=== PATIENT | female | born 1935 | race Caucasian/White ===

== ENCOUNTER 2017-10-07 10:42 | Inpatient (IN) | payer OTHER ==
[~2017-10-07] VITALS: Ht 154.9 cm; Wt 126.1 kg
[~2017-10-07 10:42] MED LIST: ACTOS 30 MG TAB30 M1 PO; ASPIRIN EC81 M1 PO; BILBERRY80 MG PO; CINNAMON ALPHA1 EACH PO; DOXYCYCLINE 10100 M1 PO; FIORICET 50-321 EACH PO; FISH OIL; FOLIC ACID; GARLIC; GINKGO BILOBA40 M1; GLUCOTROL5 MG PO; HYDROCODON-ACE1 EACH; KEFLEX500 MG PO; LASIX 20 MG TAB20 MG PO; LISINOPRIL20 MG PO; MECLIZINE HCL12.5 MG PO; OCCUVITE; PHENERGAN 25 MG25 M1 PO; TRICOR48 MG PO; VERAPAMIL E.R240 M1 PO; VITAMIN D; VITAMINC500 PO; ZETIA10 MG PO
[2017-10-07 10:51] VITALS: BP 182/73
[2017-10-07] MEDS ORDERED: CO Q-10100 MG PO (11:45)
[2017-10-07] MEDS ORDERED: FIBER625 MG PO (11:45)
[2017-10-07] MEDS ORDERED: VITAMIN B122500 MC1 PO (11:46)
[2017-10-07] MEDS ORDERED: GLUCOSAMINE HC500 MG PO (11:46)
[2017-10-07 11:50] LABS: ABSOLUTE EOSINOPHILS 0.1 thou/uL (0.0-0.7); ABSOLUTE LYMPHOCYTES 0.7 thou/uL (0.8-5.3); ABSOLUTE NEUTROPHILS 4.6 thou/uL (1.6-8.1); BASOPHILS 0.2 %; EOSINOPHILS 1.2 %; HEMATOCRIT 36.8 % (37.0-47.0); HEMOGLOBIN 11.9 gm/dL (12.0-15.0); LYMPHOCYTES 10.5 %; MCH 30.8 pg (26.0-34.0); MCHC 32.3 g/dL (28.0-37.0); MCV 95.3 fL (80.0-100.0); MONOCYTES 15.3 %; MPV 8.1 fl. (7.2-11.1); NUCLEATED RBCS 0 /100WBC; PLATELET COUNT* 170 thou/uL (150-400); POLYS 72.8 %; RBC 3.86 mil/uL (4.20-5.00); RDW-CV 15.2 % (10.5-14.5); WBC 6.3 thou/uL (4.0-11.0)
[2017-10-07 12:06] LABS: BE 6.2 mmol/L (-2 to +3); HCO3 32.1 mmol/L (22.0-26.0)
[2017-10-07 12:08] LABS: PCO2 51.8 mmHg (35.0-45.0)
[2017-10-07 12:49] LABS: APTT 30.9 Seconds (25.0-31.3); INR 1.2; PROTIME 11.4 Seconds (9.20-11.50)
[2017-10-07 12:58] LABS: ALBUMIN 3.7 g/dL (3.4-5.0); ALKALINE PHOSPHATASE 28 U/L (46-116); ANION GAP 5 mmol/L (7-16); BUN 33 mg/dL (7-18); CALCIUM 9.4 mg/dL (8.5-10.1); CHLORIDE 105 mmol/L (98-107); CO2 33 mmol/L (21-32); GLUCOSE 91 mg/dL (70-99); NT-PRO BRAIN NAT PEPTIDE 682 pg/mL (<300); POTASSIUM 3.8 mmol/L (3.5-5.1); SGOT 21 U/L (15-37); SGPT 17 U/L (30-65); SODIUM 143 mmol/L (136-145); TOTAL BILIRUBIN 0.7 mg/dL (<0.1-1.0); TOTAL PROTEIN 6.7 g/dL (6.4-8.2); TROPONIN-I LEVEL <0.06 ng/mL (<0.06)
[2017-10-07] MEDS ORDERED: VERAPAMIL E.R240 M1 PO (15:06)
[2017-10-07] MEDS ORDERED: VICODIN ES 7.51 EACH PO (15:07)
[2017-10-07 16:19] VITALS: BP 154/74
--- NOTE | 2017-10-07 17:10 | EKG ---
[place] [address] ELECTROCARDIOGRAM REPORT Name: MANISHAMEENAGILDA GEORGE Room: [address] IN .R.#: [id number] Admission: 10/07/17 Attend Phys: Bertin Rangel MD Discharge: Date of : 37 Report #: [id number] THIS REPORT FOR: //name// [facility] ED Test Date: 2017-10-07 Test Time: 11:27:16 Pat Name: MEENA DYER Department: Room: Gender: F Business Continuity Management Director: Billy ALEMAN : 1935 Requested By: Luann Simmons Order Number: [id number] MD: Elliot Goode Measurements Intervals [place] Rate: 66 P: 51 WI: 140 QRS: -37 QRSD: 130 T: 26 QT: 446 QTc: 468 Interpretive Statements Sinus rhythm Nonspecific IVCD with LAD Compared to ECG 02/06/2015 14:02:06 Intraventricular conduction delay now present Sinus arrhythmia no longer present Electronically Signed On 10-07-2017 17:10:15 CDT by Elliot Goode [email or web address] <ELECTRONICALLY SIGNED> By: Elliot Goode MD, [facility] 10/07/17 1710 1127 [id number] Elliot Goode MD, [facility] /EPI
--- NOTE | 2017-10-07 17:29 | 2DMMODE ---
[place] [address] 2 D/M-MODE ECHOCARDIOGRAM Name: MEENA DYER Room: [address] IN [facility]#: [id number] Admission: 10/07/17 Attend Phys: Bertin Rangel, Discharge: Date of : 37 Date of Service: 10/07/17 1728 Report #: [id number] THIS REPORT FOR: //name// APPROVED REPORT Study performed: 10/07/2017 16:25:02 EXAM: Comprehensive 2D, Doppler, and color-flow Echocardiogram Patient Location: In-Patient Room #: [facility] Status: routine BSA: 2.17 HR: 64 bpm BP: 182/73 mmHg Rhythm: NSR Other Information Study Quality: Good Indications Congestive Heart Failure 2D Dimensions LVEF(%): 65.38 (>50%) IVSd: 19.33 (7-11mm) LVOT Diam: 21.42 (18-24mm) LVDd: 47.25 mm PWd: 12.49 (7-11mm) Ascending Ao: 33.45 (22-36mm) LVDs: 30.31 (25-40mm) Aortic Root: 33.95 mm Rust's LVEF: 65.38 % Volumes Left Atrial Volume (Systole) LA ESV Index: 42.80 mL/m2 Aortic Valve AoV Peak Ryan.: 2.77 m/s AO Peak Gr.: 30.79 mmHg LVOT Max P.52 mmHg AO Mean Gr.: 17.30 mmHg LVOT Mean P.92 mmHg LVOT Max V: 1.46 m/s AO V2 VTI: 61.67 cm LVOT Mean V: 0.90 m/s QUINTIN (VTI): 2.23 cm2 LVOT V1 VTI: 38.19 cm Mitral Valve E/A Ratio: 0.77 [place] [address] 2 D/M-MODE ECHOCARDIOGRAM Name: MEENA DYER Room: [address] IN [facility].#: [id number] Admission: 10/07/17 Attend Phys: Bertin Rangel, Discharge: Date of : 37 Date of Service: 10/07/17 1728 Report #: [id number] MV Decel. Time: 223.77 ms MV E Max Ryan.: 1.03 m/s MV PHT: 64.89 ms MVA (PHT): 3.39 cm2 TDI E/Lateral E': 7.92 E/Medial E': 10.30 Medial E' Ryan.: 0.10 m/s Lateral E' Ryan.: 0.13 m/s Pulmonary Valve PV Peak Ryan.: 1.26 m/s PV Peak Gr.: 6.38 mmHg Tricuspid Valve TR Peak Gr.: 37.50 mmHg RVSP: 42.00 mmHg Left Ventricle The left ventricle is normal size. There is normal LV segmental wall motion. Moderate septal hypertrophy is present. Left ventricular systolic function is normal. The left ventricular ejection fraction is within the normal range. LVEF is 60-65%. Grade I - abnormal relaxation pattern. Right Ventricle The right ventricle is normal size. The right ventricular systolic function is normal. Atria Left atrium is moderately dilated. The right atrium size is normal. Aortic Valve Mild aortic valve sclerosis. No aortic regurgitation is present. Mild aortic stenosis. Mitral Valve The mitral valve is normal in structure. Trace mitral regurgitation. No evidence of mitral valve stenosis. Tricuspid Valve The tricuspid valve is normal in structure. Trace tricuspid regurgitation pa pressure 50 mm Hg Pulmonic Valve The pulmonary valve is normal in structure. [place] [address] 2 D/M-MODE ECHOCARDIOGRAM Name: MEENA DYER Room: [address] IN [facility]#: [id number] Admission: 10/07/17 Attend Phys: Bertin Rangel, Discharge: Date of : 37 Date of Service: 10/07/17 1728 Report #: [id number] Great Vessels The aortic root is normal in size. IVC is normal in size and collapses with >50% inspiration Pericardium There is no pericardial effusion. <Conclusion> LVEF is 60-65%. Left atrium is moderately dilated. Mild aortic stenosis. Trace tricuspid regurgitation pa pressure 50 mm Hg <ELECTRONICALLY SIGNED> By: Parag Olivares MD, FACC 10/07/171727 27 27 Parag Olivares MD, FACC /INF
[2017-10-07 18:21] VITALS: BP 154/52
[2017-10-07 20:00] VITALS: BP 161/65
[2017-10-08 00:39] VITALS: BP 107/47
[2017-10-08 04:23] VITALS: BP 140/56
[2017-10-08 04:48] LABS: HEMATOCRIT 35.9 % (37.0-47.0); HEMOGLOBIN 11.9 gm/dL (12.0-15.0); MCH 31.1 pg (26.0-34.0); MCV 94.2 fL (80.0-100.0); MPV 7.8 fl. (7.2-11.1); NUCLEATED RBCS 0 /100WBC; PLATELET COUNT* 159 thou/uL (150-400); RBC 3.81 mil/uL (4.20-5.00); RDW-CV 15.2 % (10.5-14.5); WBC 3.6 thou/uL (4.0-11.0)
[2017-10-08 05:43] LABS: CALCIUM 8.9 mg/dL (8.5-10.1); POTASSIUM 3.9 mmol/L (3.5-5.1)
[2017-10-08 07:24] LABS: ABSOLUTE EOSINOPHILS 0.1 thou/uL (0.0-0.7); ABSOLUTE MONOCYTES 0.8 thou/uL (0.0-1.2); ABSOLUTE NEUTROPHILS 1.7 thou/uL (1.6-8.1)
[2017-10-08 07:25] LABS: PLATELET ESTIMATE ADEQUATE
[2017-10-08 11:30] VITALS: BP 135/61
[2017-10-08 16:00] VITALS: BP 146/46
[2017-10-08 20:00] VITALS: BP 127/43
[2017-10-09] VITALS: BP 121/49
[2017-10-09 04:00] VITALS: BP 137/62
[2017-10-09 08:00] VITALS: BP 148/59
[2017-10-09 10:34] LABS: ABSOLUTE EOSINOPHILS 0.1 thou/uL (0.0-0.7); ABSOLUTE LYMPHOCYTES 0.9 thou/uL (0.8-5.3); ABSOLUTE MONOCYTES 0.7 thou/uL (0.0-1.2); ABSOLUTE NEUTROPHILS 2.3 thou/uL (1.6-8.1); BASOPHILS 0.4 %; EOSINOPHILS 1.4 %; HEMATOCRIT 36.5 % (37.0-47.0); HEMOGLOBIN 11.9 gm/dL (12.0-15.0); LYMPHOCYTES 21.7 %; MCH 30.9 pg (26.0-34.0); MCHC 32.5 g/dL (28.0-37.0); MCV 95.1 fL (80.0-100.0); MONOCYTES 17.4 %; MPV 7.6 fl. (7.2-11.1); NUCLEATED RBCS 0 /100WBC; PLATELET COUNT* 172 thou/uL (150-400); POLYS 59.1 %; RBC 3.84 mil/uL (4.20-5.00); RDW-CV 14.9 % (10.5-14.5); WBC 3.9 thou/uL (4.0-11.0)
[2017-10-09 10:45] LABS: ALBUMIN 3.5 g/dL (3.4-5.0); CREATININE 1.2 mg/dL (0.6-1.3); POTASSIUM 4.2 mmol/L (3.5-5.1); TOTAL BILIRUBIN 0.4 mg/dL (<0.1-1.0); TOTAL PROTEIN 6.6 g/dL (6.4-8.2)
[2017-10-09 11:32] VITALS: BP 151/60
[2017-10-09 16:03] VITALS: BP 145/52
[2017-10-09 20:45] VITALS: BP 128/52
[2017-10-09 21:26] LABS: URINE BILIRUBIN NEGATIVE (Negative); URINE BLOOD NEGATIVE (Negative); URINE CLARITY CLEAR; URINE COLOR YELLOW; URINE GLUCOSE-RANDOM 1+ (Negative); URINE KETONES TRACE (Negative); URINE LEUKOCYTES NEGATIVE (Negative); URINE NITRITE NEGATIVE (Negative); URINE PROTEIN NEGATIVE (Negative); URINE SPECIFIC GRAVITY >= 1.030 (1.005-1.030); URINE UROBILINOGEN 0.2 E.U./dl (0.2-1.0)
[2017-10-10 04:45] LABS: ABSOLUTE LYMPHOCYTES 0.4 thou/uL (0.8-5.3); ABSOLUTE MONOCYTES 0.5 thou/uL (0.0-1.2); ABSOLUTE NEUTROPHILS 4.2 thou/uL (1.6-8.1); BASOPHILS 0.1 %; HEMATOCRIT 35.2 % (37.0-47.0); HEMOGLOBIN 11.3 gm/dL (12.0-15.0); LYMPHOCYTES 8.4 %; MCH 30.7 pg (26.0-34.0); MCHC 32.2 g/dL (28.0-37.0); MCV 95.2 fL (80.0-100.0); MPV 8.6 fl. (7.2-11.1); NUCLEATED RBCS 0 /100WBC; PLATELET COUNT* 165 thou/uL (150-400); POLYS 82.5 %; WBC 5.1 thou/uL (4.0-11.0)
[2017-10-10 04:52] LABS: CALCIUM 8.9 mg/dL (8.5-10.1); CREATININE 1.4 mg/dL (0.6-1.3); POTASSIUM 4.4 mmol/L (3.5-5.1)
[2017-10-10 08:10] VITALS: BP 132/43
[2017-10-10] MEDS ORDERED: FOLIC ACID1 MG PO (14:31)
[2017-10-10] MEDS ORDERED: FISH OIL 1,001000 M2 PO (14:31)
[2017-10-10] MEDS ORDERED: GARLIC1 EACH PO (14:32)
[2017-10-10] MEDS ORDERED: OCUVEL CAPSULE1 EACH PO (14:37)
[2017-10-10 16:16] VITALS: BP 132/43
[2017-10-10 17:07] VITALS: BP 132/43
== END 2017-10-10 17:08 | disposition home or self-care (01) | DRG 177 ==
LOC: M.ERS 10:42 → M.ORTHSURG 14:03 → M.2W 14:03 → M.TBA-ER 14:03 → M.2W 15:59 → M.ORTHSURG 10-09 11:39
PROVIDERS: Personal Emergency Response Attendant; ADMIT Internal Medicine
DX: J15.6 Pneumonia due to other Gram-negative bacteria (principal); I50.33 Acute on chronic diastolic (congestive) heart failure; I50.9 Heart failure, unspecified; J20.9 Acute bronchitis, unspecified; G89.29 Other chronic pain; E11.9 Type 2 diabetes mellitus without complications; F32.9 Major depressive disorder, single episode, unspecified; F41.9 Anxiety disorder, unspecified; M17.11 Unilateral primary osteoarthritis, right knee; Z90.49 Acquired absence of other specified parts of digestive tract; Z98.890 Other specified postprocedural states; Z88.0 Allergy status to penicillin; Z88.2 Allergy status to sulfonamides; Z79.82 Long term (current) use of aspirin; Z79.899 Other long term (current) drug therapy

== ENCOUNTER 2018-03-07 19:55 | Inpatient (IN) | payer OTHER ==
[~2018-03-07] VITALS: Ht 152.4 cm; Wt 98.8 kg
[~2018-03-07 19:55] MED LIST changes: +CO Q-10100 MG PO; +FIBER625 MG PO; +FISH OIL 1,001000 M2 PO; +FOLIC ACID1 MG PO; +GARLIC1 EACH PO; +GLUCOSAMINE HC500 MG PO; +OCUVEL CAPSULE1 EACH PO; +VICODIN ES 7.51 EACH PO; +VITAMIN B122500 MC1 PO
[2018-03-07 20:06] VITALS: BP 139/45
[2018-03-07] MEDS ORDERED: ZOLOFT50 MG PO (20:22)
[2018-03-07] MEDS ORDERED: NITROSTAT0.4 M1 SUBLING (20:24)
[2018-03-07] MEDS ORDERED: OMEPRAZOLE40 MG PO (20:25)
[2018-03-07] MEDS ORDERED: ONDANSETRON HCL8 M2 PO (20:26)
[2018-03-07] MEDS ORDERED: FLAGYL500 MG PO (20:27)
[2018-03-07] MEDS ORDERED: CLARITHROMYCIN500 MG PO (20:27)
[2018-03-07 20:52] LABS: ABSOLUTE LYMPHOCYTES 0.7 thou/uL (0.8-5.3); ABSOLUTE MONOCYTES 0.8 thou/uL (0.0-1.2); ABSOLUTE NEUTROPHILS 3.9 thou/uL (1.6-8.1); BASOPHILS 0.2 %; EOSINOPHILS 0.6 %; HEMATOCRIT 37.4 % (37.0-47.0); LYMPHOCYTES 13.2 %; MCH 30.5 pg (26.0-34.0); MCHC 32.2 g/dL (28.0-37.0); MCV 94.9 fL (80.0-100.0); MONOCYTES 14.1 %; MPV 8.6 fl. (7.2-11.1); NUCLEATED RBCS 0 /100WBC; PLATELET COUNT* 230 thou/uL (150-400); POLYS 71.9 %; RBC 3.94 mil/uL (4.20-5.00); RDW-CV 15.8 % (10.5-14.5); WBC 5.4 thou/uL (4.0-11.0)
[2018-03-07 20:59] LABS: CALCIUM 8.8 mg/dL (8.5-10.1); CREATININE 3.4 mg/dL (0.6-1.3); POTASSIUM 3.9 mmol/L (3.5-5.1)
[2018-03-07 21:03] LABS: ALBUMIN 3.9 g/dL (3.4-5.0); MAGNESIUM 2.3 mg/dL (1.8-2.4); TOTAL BILIRUBIN 0.5 mg/dL (<0.1-1.0); TOTAL PROTEIN 6.8 g/dL (6.4-8.2)
[2018-03-07 22:14] LABS: URINE BILIRUBIN NEGATIVE (Negative); URINE BLOOD NEGATIVE (Negative); URINE CLARITY CLEAR; URINE COLOR YELLOW; URINE GLUCOSE-RANDOM NEGATIVE (Negative); URINE KETONES NEGATIVE (Negative); URINE LEUKOCYTES-REFLEX NEGATIVE (Negative); URINE NITRITE-REFLEX NEGATIVE (Negative); URINE PROTEIN NEGATIVE (Negative); URINE UROBILINOGEN 0.2 E.U./dl (0.2-1.0)
[2018-03-08 00:06] LABS: APTT 30.6 Seconds (25.0-31.3); INR 1.2; PROTIME 12.1 Seconds (9.20-11.50)
[2018-03-08 00:40] LABS: pH 7.311 (7.340-7.450)
[2018-03-08 00:41] LABS: PCO2 61.5 mmHg (35.0-45.0)
[2018-03-08 00:42] LABS: BE 2.7 mmol/L (-2 to +3); HCO3 30.3 mmol/L (22.0-26.0); PO2 38.3 mmHg (75.0-100.0)
[2018-03-08 03:00] VITALS: BP 133/46
[2018-03-08 06:58] LABS: CALCIUM 8.2 mg/dL (8.5-10.1); CREATININE 3.1 mg/dL (0.6-1.3)
[2018-03-08 08:45] VITALS: BP 127/42
--- NOTE | 2018-03-08 10:56 | EKG ---
[place] [address] ELECTROCARDIOGRAM REPORT Name: MANISHAMEENAGILDA GEORGE Room: [address] ADM IN M.R.#: [id number] Admission: 03/07/18 Attend Phys: Sheila Clark Discharge: Date of : 37 Report #: [id number] THIS REPORT FOR: //name// [facility] ED Test Date: 2018-03-07 Test Time: 21:10:02 Pat Name: MEENA DYER Department: Room: [facility] Gender: F Product Marketing Manager: CATHIE : 1935 Requested By: Luann Simmons Order Number: [id number] MD: Parag Olivares Measurements Intervals [place] Rate: 52 P: -30 SC: 127 QRS: -25 QRSD: 126 T: 40 QT: 490 QTc: 456 Interpretive Statements Sinus bradycardia Nonspecific intraventricular conduction delay Compared to ECG 10/07/2017 11:27:16 rate slowed Electronically Signed On 03-08-2018 10:56:27 CDT by Parag Olivares [email or web address] <ELECTRONICALLY SIGNED> By: Parag Olivares MD, [facility] 03/08/18 1056 09 09 Parag Olivares MD, [facility] /EPI
[2018-03-08 11:41] VITALS: BP 120/64
[2018-03-08 16:33] VITALS: BP 109/61
[2018-03-08 20:00] VITALS: BP 150/57
[2018-03-09] VITALS: BP 109/49
[2018-03-09 04:00] VITALS: BP 117/48
[2018-03-09 05:12] LABS: HEMATOCRIT 31.6 % (37.0-47.0); HEMOGLOBIN 10.2 gm/dL (12.0-15.0); MCH 31.2 pg (26.0-34.0); MCHC 32.4 g/dL (28.0-37.0); MCV 96.4 fL (80.0-100.0); MPV 8.2 fl. (7.2-11.1); RBC 3.28 mil/uL (4.20-5.00); RDW-CV 15.9 % (10.5-14.5); WBC 6.7 thou/uL (4.0-11.0)
[2018-03-09 05:45] LABS: ALBUMIN 3.1 g/dL (3.4-5.0); CALCIUM 8.1 mg/dL (8.5-10.1); CREATININE 2.5 mg/dL (0.6-1.3); MAGNESIUM 2.2 mg/dL (1.8-2.4); POTASSIUM 4.3 mmol/L (3.5-5.1); TOTAL BILIRUBIN 0.6 mg/dL (<0.1-1.0); TOTAL PROTEIN 5.3 g/dL (6.4-8.2)
[2018-03-09 08:45] VITALS: BP 109/44
[2018-03-09 11:36] VITALS: BP 136/44
--- NOTE | 2018-03-09 12:36 | EKG ---
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: : 1935 Requested By: Julian Vargas Order Number: [id number] Reading MD: Elliot Goode Measurements Intervals [place] Rate: 78 P: SD: QRS: -28 QRSD: 117 T: 30 QT: 396 QTc: 452 Interpretive Statements Atrial fibrillation Nonspecific intraventricular conduction delay Low voltage, precordial leads Compared to ECG 03/07/2018 21:10:02 Low QRS voltage now present Sinus bradycardia no longer present Electronically Signed On 03-09-2018 12:36:43 CDT by Elliot Goode [email or web address] <ELECTRONICALLY SIGNED> By: Elliot Goode MD, FACC 03/09/18 1236 0037 0037 Elliot Goode MD, [facility] /EPI
[2018-03-09 15:11] LABS: IgA 112 mg/dL (64-422); IgG 615 mg/dL (700-1600); IgM 74 mg/dL (26-217)
[2018-03-09 16:03] VITALS: BP 146/47
[2018-03-09 20:00] VITALS: BP 140/44
[2018-03-10] VITALS: BP 106/52
[2018-03-10 04:43] LABS: HEMATOCRIT 32.5 % (37.0-47.0); HEMOGLOBIN 10.4 gm/dL (12.0-15.0); MCH 31.1 pg (26.0-34.0); MCHC 31.9 g/dL (28.0-37.0); MCV 97.4 fL (80.0-100.0); MPV 8.1 fl. (7.2-11.1); RBC 3.34 mil/uL (4.20-5.00); RDW-CV 15.6 % (10.5-14.5); WBC 7.6 thou/uL (4.0-11.0)
[2018-03-10 05:03] LABS: ALBUMIN 3.2 g/dL (3.4-5.0); CALCIUM 8.5 mg/dL (8.5-10.1); MAGNESIUM 2.3 mg/dL (1.8-2.4); TOTAL BILIRUBIN 0.7 mg/dL (<0.1-1.0); TOTAL PROTEIN 5.6 g/dL (6.4-8.2)
[2018-03-10 08:05] VITALS: BP 129/53
--- NOTE | 2018-03-10 09:19 | CON ---
[address] [address] CONSULTATION Name: MEENA DYER Room: [address] IN M.R.#: [id number] Admission: 03/07/18 Attend Phys: Sheila Clark Discharge: Date of : 37 Report #: [id number] THIS REPORT FOR: //name// CC: Colleen Vargas DATE OF SERVICE: 03/08/2018 CONSULTING PHYSICIAN: Dr. Vargas. REASON FOR NEPHROLOGY CONSULTATION: Acute kidney injury and possible chronic kidney disease. CHIEF COMPLAINT: The patient was feeling weak and she had decreased urine output, decreased appetite, and decreased blood sugar. HISTORY OF PRESENT ILLNESS: This is an 82-year-old female who has past medical history of diabetes type 2, no history of kidney disease that she knows of, but her baseline creatinine seems to be 1-1.2, hypertension, SD and congestive heart failure, which is chronic diastolic in nature with ejection fraction of 65% in 09/2017, came in because she was feeling short of breath, had decreased urine output and was feeling dizzy and had decreased blood sugar. Her blood sugar was found to be 33. She also doubled up on her dose of Lasix, which normally she takes 20 mg a day, but still her urine output did not improve and hence she came to the Emergency Room. She also takes lisinopril 40 mg a day at home. She does not take any NSAIDs. Her blood pressure was found to be 84/42 and she was given IV fluid and dizziness and urine output have been improving. She was also given D5 to help with her hypoglycemia and her diabetes medications were stopped for the moment. She had a creatinine of 3.4 when she came in and it has already improved to 3.1 with IV fluids and she had been feeling a little better. She was recently started on Flagyl and clarithromycin, which she started taking for H. pylori and she still has few days of that treatment left. REVIEW OF SYSTEMS: As mentioned in history of present illness, otherwise negative. ALLERGIES: PENICILLIN, SULFAMETHOXAZOLE. PAST MEDICAL AND SURGICAL HISTORY: Includes diabetes type 2, depression, anxiety, CKD stage 3 with baseline creatinine of 1-1.2, hypertension, SD, right knee arthritis, left shoulder repair in 2005, eye surgery for cataracts in June and July 2005, cellulitis and cholecystectomy. HOME MEDICATIONS: Include sertraline, nitroglycerin, omeprazole, ondansetron, metronidazole, glipizide, lisinopril, pioglitazone, fenofibrate, ezetimibe, furosemide, aspirin, cinnamon bark, ascorbic acid, bilberry fruit extract, [place] [address] CONSULTATION Name: MEENA DYER DORIS Room: [address] IN M.R.#: [id number] Admission: 03/07/18 Attend Phys: Sheila Clark Discharge: Date of : 37 Report #: [id number] calcium polycarbophil, CoQ10, cyanocobalamin, glucosamine, verapamil, hydrocodone, docosahexaenoic acid, folic acid, garlic, vitamin C and E, zinc and Copper. FAMILY HISTORY: No history of any kidney disease in the family. SOCIAL HISTORY: Does not smoke or take alcohol or use recreational drugs. Lives at home by herself. PHYSICAL EXAMINATION: VITAL SIGNS: Blood pressure is 127/42, respiratory rate is 18, pulse rate is 61, temperature 36.8, and pulse ox 98% on 2 liters of oxygen via nasal cannula. GENERAL: She is awake, alert and oriented. HEAD, EYES, EARS, NOSE, THROAT: Mucous membranes are moist. NECK: There is no JVD. CHEST: Clear to auscultation anteriorly. No crackles or wheezing heard. CARDIOVASCULAR: S1, S2 normal. No murmurs. ABDOMEN: Soft, nondistended, nontender, obese and bowel sounds are present. EXTREMITIES: There is 2+ lower extremity edema bilateral lower extremities, which has been going on for a few weeks and the left extremity is also red anteriorly in the lower part. NEUROLOGICAL: Gross neurological function is intact. PSYCHIATRIC: Mood and affect seem to be normal. LABORATORY DATA: Hemoglobin is 12.0, potassium is 4.0, bicarb is 30, creatinine is 3.1, BUN is 50 and creatinine was 2.4 when she came in. Other labs are reviewed. IMAGING: Chest x-ray and V/Q scan was reviewed. ASSESSMENT: 1. Acute kidney injury on chronic kidney disease stage 3 in the setting of volume depletion, VERONA inhibitor use, Lasix use and hypotension. Creatinine was 3.4 on arrival to the ER. Baseline creatinine is 1-1.2. UA has no protein or blood in it. 2. Dehydration, improving with IV fluids. 3. Chronic diastolic congestive heart failure, currently looks dry, ejection fraction is 65% in September of this year and with grade 1 diastolic dysfunction. 4. Respiratory acidosis with metabolic alkalosis, former could be component of chronic respiratory acidosis because she could be having sleep apnea and latter could be because of intravascular volume depletion. 5. Hypotension, lisinopril is on hold. PLAN: 1. Keep the lisinopril and Lasix on hold and decrease IV fluids now to 70 mL an hour. [address] [address] CONSULTATION Name: MEENA DYER Room: [address] IN ..#: [id number] Admission: 03/07/18 Attend Phys: Sheila Clark Discharge: Date of : 37 Report #: [id number] 2. If creatinine starts to worsen again, we will check a renal ultrasound. Otherwise, no need right now. 3. For now, labs are improving and continue with fluids. Thank you for this consultation. We will continue to follow along with you. Discussed plan with the patient as well as the patient's nurse. <ELECTRONICALLY SIGNED> By: Mar Martin MD 03/10/18 0919 0950 [id number] Martin MD /nt
[2018-03-10 12:21] VITALS: BP 142/53
[2018-03-10 13:10] LABS: KAPPA FREE LIGHT CHAINS 27.6 mg/L (3.3-19.4); LAMBDA FREE LIGHT CHAINS 18.8 mg/L (5.7-26.3)
[2018-03-10] MEDS ORDERED: AMOXICILLIN 50500 MG PO (16:12)
== END 2018-03-10 17:10 | DRG 682 ==
LOC: M.ERS 19:55 → M.TBA-ER 23:59 → M.2W 23:59
PROVIDERS: Internal Medicine; Personal Emergency Response Attendant; ADMIT Internal Medicine
DX: N17.9 Acute kidney failure, unspecified (principal); J96.00 Acute respiratory failure, unspecified whether with hypoxia or hypercapnia; I50.32 Chronic diastolic (congestive) heart failure; E87.4 Mixed disorder of acid-base balance; I13.0 Hypertensive heart and chronic kidney disease with heart failure and stage 1 through stage 4 chronic kidney disease, or unspecified chronic kidney disease; E11.22 Type 2 diabetes mellitus with diabetic chronic kidney disease; F32.9 Major depressive disorder, single episode, unspecified; F41.9 Anxiety disorder, unspecified; M17.12 Unilateral primary osteoarthritis, left knee; E11.649 Type 2 diabetes mellitus with hypoglycemia without coma; I95.9 Hypotension, unspecified; N18.3 Chronic kidney disease, stage 3 (moderate); E86.9 Volume depletion, unspecified; E86.0 Dehydration; T50.905A Adverse effect of unspecified drugs, medicaments and biological substances, initial encounter; I25.10 Atherosclerotic heart disease of native coronary artery without angina pectoris; Z90.49 Acquired absence of other specified parts of digestive tract; Z88.0 Allergy status to penicillin; I25.2 Old myocardial infarction; Z98.49 Cataract extraction status, unspecified eye; Z88.2 Allergy status to sulfonamides; Z79.899 Other long term (current) drug therapy